=== PATIENT | male | born 1975 | race Caucasian/White ===

== ENCOUNTER 2020-06-13 06:13 | Emergency (ER) | payer OTHER, SELFPAY ==
[2020-06-13 06:14] VITALS: BP 109/69; PULSE 57; RESP 16; TEMP 36.7; O2SAT 100; BMI 34.8
--- NOTE | 2020-06-13 06:29 | CT_ITS ---
STUDY: CT ABDOMEN AND PELVIS WITH CONTRAST REASON FOR EXAM: Male, 44 years old. DIFFICULTY URINATING, lower abd pain RADIATION DOSAGE (If Supplied By Facility): CTDIvol = ( 16.26 ) mGy, DLP = ( 1174.82 ) mGycm TECHNIQUE: Transaxial images were obtained from the dome of the diaphragm to the symphysis pubis without oral contrast. IV 100mL Isovue-300 was administered. Sagittal and coronal images were reconstructed. Individualized dose optimization techniques were used for this CT. COMPARISON: None. FINDINGS: The visualized lung bases are unremarkable. The visualized portions of the heart are within normal limits. Normal liver. There are multiple gallstones. Normal spleen. Normal pancreas. Normal bilateral adrenal glands. Normal right kidney. Normal left kidney. Normal visualized stomach. Normal small intestine. Normal colon. The appendix is visualized and appears normal. Normal abdominal aorta. Normal inferior vena cava. Normal retroperitoneum. Normal urinary bladder. Normal abdominal wall. Normal osseous structures. CT/Abdomen/Pelvis W IV Cont ONLY IMPRESSION: There are multiple gallstones. Electronically Signed: [place], at 7:28 EST Tel , Service support ,
--- NOTE | 2020-06-13 06:34 | ED.DCSUM_ITS ---
- ER Visit Summary Date of Service: 06/13/20 Chief Complaint: Difficulty urinating History of Present Illness: The patient is a 44 M with difficulty urinating that started yesterday morning. He is having suprapubic pain, and since the pain started, his urine stream is getting weaker, down to about half normal. He said after he urinates, he feels like he is not empty. He never had this before. Nothing seemed to bring this on. He did not notice any other associated urinary symptoms. No history of prostate issues. No pain in his rectum. No fever. He is having slightly increased stool frequency. Denies any bleeding or diarrhea. Denies constipation. Denies any history of colitis or diverticulitis. Has history of kidney stones. Denies any history of back problems, surgery, trauma, cancer. He is not on anticoagulation and denies any blood in his urine. Physical Examination: Afebrile and vital signs unremarkable. Patient appears uncomfortable but not toxic or in distress. He does have some suprapubic tenderness but otherwise his abdominal exam is unremarkable. Skin appears normal. Lira catheter is in place, see below. Test Results: Labs, urine, CT pending. Emergency Department Course and Treatment: Patient was seen immediately by nursing who placed a Lira catheter. They did get return of urine, but it was not a large volume, and he did not have resolution of his pain. I saw the patient at this point. I did a bedside ultrasound and did not see a large distended bladder. I suspect his pain is from something else. We will send a urinalysis as well as labs. Will obtain a CT. He had a change in his bowel movements and this may be a colitis or diverticulitis that is irritating his bladder. He was treated with fluids, morphine, Zofran while awaiting results. CBC normal. Potassium 3.2, chloride 111, glucose 125, BUN 20. 50-100 red cells in the urine. CT is still pending. Dr. Garcia will check the results of the CT, treat accordingly, and make the disposition. Treatment Plan: Pending Disposition: Pending Impression: Suprapubic pain This note was generated with [employer] software. It may contain incorrect words, spelling, and punctuation that were not noted in review of the chart prior to signing ED Disposition - Plan for ED Patient: Referrals: NOT,DEFINED [NON-STAFF] -
[2020-06-13 06:39] LABS: Color, Urine Yellow (Yellow); Glucose, Dipstick Normal (Normal); Ketone-Dipstick 15 mg/dl (Negative); Leukocyte Esterase-Dipstick Negative /ul (Negative); Mucous, Urine 0 SEEN /hpf (<or=2+); Nitrite-Dipstick Negative (Negative); Occult Blood-Urine 250 /ul (Negative); Protein-Dipstick 15 mg/dl (Negative); Specific Gravity, Urine 1.015 (1.002-1.030); Squamous Epithelial Cells - UA 0 SEEN /hpf (0-5); Urine Bilirubin Dipstick Negative (Negative); Urine Clarity Sl. Cloudy (Clear); Urine Urobilinogen Normal (Normal)
[2020-06-13] MEDS: Ondansetron 4 MG/2 ML Vial IV (06:40)
[2020-06-13] MEDS: 0.9% Normal Saline 1,000 ML 1000 ML IV (06:40)
[2020-06-13] MEDS: Morphine 4 MG/ML Syringe IV ×2 (06:40→07:49)
[2020-06-13 06:44] LABS: Absolute Lymphocyte Count 2.49 X10^3/uL (0.83-4.51); Absolute Neutrophil Count 3.1 X10^3/uL (2.0-7.7); Basophil# 0.02 X10^3/uL; Basophil% 0.3 % (0-1); Eosinophil# 0.09 X10^3/uL; Eosinophils% 1.4 % (0-5); Hematocrit 44.7 % (40-54); Lymphocyte # 2.49 X10^3/ul (4.0); Lymphocyte % 39.9 % (19-41); Mean Corp Hgb Conc 33.6 g/dL (32-36); Mean Corpuscular Hgb 29.4 pg (27.0-32.0); Mean Corpuscular Volume 87.6 fL (80-94); Mean Platelet Vol. 9.7 fl (6.2-12.0); Monocyte# 0.52 X10^3/uL; Monocyte% 8.3 % (0-10); NRBC Flagged by Analyzer 0 % (0-5); Neutrophil # 3.11 X10^3/uL (2.7-7.7); Neutrophil % 49.9 % (47-70); Platelet Count 243 K/mm3 (150-450); RBC Distribution Width CV 12.5 % (11.6-14.6); RBC Distribution Width SD 39.9 fl (35.1-43.9); White Blood Count 6.2 K/mm3 (4.4-11.0)
[2020-06-13 06:45] LABS: Bacteria 1+ /hpf (None Seen); Red Blood Cells-Urine 50-100 SEEN /hpf (0-5); White Blood Cells 0-5 SEEN /hpf (0-5)
[2020-06-13 06:57] LABS: Anion Gap 8 (5-15); BUN 20 mg/dL (7-18); BUN/Creat Ratio 15.6 RATIO (10-20); Calcium,Total 8.8 mg/dL (8.5-10.1); Chloride 111 mmol/L (98-107); Creatinine, Serum 1.28 mg/dL (0.70-1.30); EST Glomerular Filtration Rate 65 mL/min (>60); Est Glom Filt Rate - Afr Amer 79 mL/min (>60); Estimated Creatinine Clearance 69.57 ml/min; Glucose 125 mg/dL (74-106); Potassium 3.2 mmol/L (3.5-5.1); Sodium Level 142 mmol/L (136-145)
--- NOTE | 2020-06-13 07:49 | US_ITS ---
STUDY: ABDOMINAL ULTRASOUND - RIGHT UPPER QUADRANT REASON FOR VISIT: Male, 44 years old GENERAL ABD PAIN X 2 DAYS -- F/U DT DONE TODAY TECHNIQUE: Ultrasound evaluation of the right upper quadrant was performed with real-time and static richards-scale imaging. TECHNICAL QUALITY: Adequate. COMPARISON: Comparison is made with prior CT scan done earlier today. FINDINGS: Liver: The liver measures 16.4 cm. There is increased echogenicity consistent with fatty infiltration. The bile ducts are within normal limits. There is hepatic color flow. The direction of portal flow is hepatopetal. There is no demonstrated mass lesion. Gallbladder: Normal distended gallbladder. The gallbladder wall measures 2.4 mm. There is a negative sonographic Fontenot''s sign. There is no pericholecystic fluid. There are multiple echogenic structures within the gallbladder, consistent with multiple gallstones. Common Bile Duct (C.B.D.): The common bile duct measures 3.9 mm. Pancreas: Normal size of the head, body and tail of the pancreas. There is increased echogenicity of the pancreas. There is no demonstrated pancreatic mass or cyst. Right Kidney: Normal size of the right kidney. The right kidney measures 11.7 cm x 5.9 cm x 5.5 cm. Normal renal cortex. The right cortex measures 2.1 cm. There is no demonstrated renal mass or cyst. There is no right hydronephrosis. US/Abdomen Limited IMPRESSION: Multiple gallstones. Fatty infiltration of the liver. Electronically Signed: Jacinto Spivey, at 9:33 EST , Service support ,
[2020-06-13 09:19] LABS: Lipase 107 U/L (73-393)
[2020-06-13 09:24] LABS: AST(SGOT) 18 U/L (15-37); Alanine Aminotransfer ALT/SGPT 37 U/L (16-61); Albumin, Serum 3.8 g/dL (3.2-5.0); Alkaline Phosphatase 59 U/L (45-117); Bilirubin, Direct 0.11 mg/dL (0.00-0.30); Globulin 3.5 g/dL (2.2-4.2); Protein, Total 7.3 g/dL (6.4-8.2)
--- NOTE | 2020-06-13 10:16 | ED.VISSUMM ---
- ER Visit Summary Date of Service: 06/13/20 Chief Complaint: [] History of Present Illness: The patient is a 44 M [] Physical Examination: [] Test Results: [] Emergency Department Course and Treatment: [] Treatment Plan: [] Disposition: [] Impression: [] This note was generated with [employer] dictation software. It may contain incorrect words, spelling, and punctuation that were not noted in review of the chart prior to signing ED Disposition - Plan for ED Patient: Disposition: Home or Assisted Living Diagnosis: Biliary colic symptom, Cholelithiasis Instructions: ED Gallstones with Biliary Colic Prescriptions: Oxycodone HCl/Acetaminophen [Percocet 5/325] 1 tablet PO Q6H PRN PRN 3 Days #12 tablet PRN Reason: Pain Transmission Status: Sent to [facility] Referrals: Obed Marin MD [STAFF PHYSICIAN] - NOT,DEFINED [NON-STAFF] - 5-7 Days
[2020-06-13 12:17] VITALS: BP 103/77; PULSE 65; RESP 17
== END 2020-06-13 12:21 | disposition home or self-care (01) ==
PROVIDERS: Emergency Medicine; Emergency Provider Emergency Medicine
DX: R10.30 Lower abdominal pain, unspecified (principal); R39.12 Poor urinary stream; K80.80 Other cholelithiasis without obstruction; Z87.442 Personal history of urinary calculi
CPT/HCPCS: 51702; 74177; 76705; 80048; 80076; 81001; 83690; 85025; 96361; 96374; 96375; 99284; J7030; J7040; Q9967; A4216; J2405